=== PATIENT | male | born 1990 | race Caucasian/White ===

== ENCOUNTER 2017-10-11 14:04 | Emergency (ER) | payer SELFPAY ==
[~2017-10-11] VITALS: Ht 172.7 cm; Wt 70.3 kg
[2017-10-11] MEDS ORDERED: SILD50TA PO (14:23)
[2017-10-11] MEDS ORDERED: ABAC1TAB15 PO (14:23)
[2017-10-11] MEDS ORDERED: LORAZEPAM 2 MG/1 ML VIAL IV ONE ×2 (15:00→16:00)
[2017-10-11] MEDS ORDERED: IV NORMAL SALINE 1000 ML BAG IV ONE (15:00)
--- NOTE | 2017-10-11 15:01 | NUR ---
PT IS IN ROOM #2A. DR MONTES EVALUATED THE PT.
[2017-10-11] MEDS ORDERED: LORAZEPAM 2 MG/1 ML VIAL ONE ×2 (15:05→16:01)
[2017-10-11 15:31] LABS: BASOPHILS % (AUTO) 0.3 % (0.0-2.0); EOSINOPHILS # (AUTO) 0.1 K/uL (0.0-0.7); EOSINOPHILS % (AUTO) 1.2 % (0.0-7.0); HEMATOCRIT 44.5 % (36.7-47.1); HEMOGLOBIN 15.2 g/dL (12.5-16.3); LYMPHOCYTES # (AUTO) 2.2 K/uL (20.0-40.0); LYMPHOCYTES % (AUTO) 22.2 % (20.5-51.5); MEAN CORPUSCULAR HEMOGLOBIN 30.4 uug (23.8-33.4); MEAN CORPUSCULAR HGB CONC 34 g/dL (32.5-36.3); MONOCYTES # (AUTO) 0.8 K/uL (2.0-10.0); MONOCYTES % (AUTO) 7.7 % (0.0-11.0); NEUTROPHILS % (AUTO) 68.6 % (38.5-71.5); PLATELET COUNT (AUTO) 298 K/uL (152-348); WHITE BLOOD COUNT (AUTO) 10.1 K/uL (3.6-10.2)
[2017-10-11 15:56] LABS: CREATININE 0.9 mg/dL (0.6-1.3); POTASSIUM 3.8 mmol/L (3.5-5.1)
[2017-10-11 15:57] LABS: BILIRUBIN,DIRECT 0.2 mg/dL (0.0-0.2); BILIRUBIN,TOTAL 1.6 mg/dL (0.2-1.0)
--- NOTE | 2017-10-11 16:45 | NUR ---
DR MONTES MADE PATIENT AWARE OF TEST RESULTS.
--- NOTE | 2017-10-11 16:50 | NUR ---
PATIENT IV WAS REMOVED BY PATIENT NO BLEEDING NOTED.
--- NOTE | 2017-10-11 17:02 | NUR ---
Patient discharged to home in stable conditon. Written and verbal after care instructions given. Patient verbalizes understanding of instructions. V/S refused. NO CP.
== END 2017-10-11 17:02 | disposition home or self-care (01) ==
LOC: ER 14:05
DX: R00.0 Tachycardia, unspecified (principal); Z79.899 Other long term (current) drug therapy
CPT/HCPCS: 36415; 70030-TC; 71045; 84443; 85025; 85730; 93005; A4663; J2060; J7030

== ENCOUNTER 2017-12-30 07:23 | Emergency (ER) | payer SELFPAY ==
[~2017-12-30] VITALS: Ht 172.7 cm; Wt 71.7 kg
[~2017-12-30 07:23] MED LIST: ABAC1TAB15 PO; SILD50TA PO
--- NOTE | 2017-12-30 07:34 | NUR ---
Dr Rivera at the bedside for MSE.
[2017-12-30] MEDS ORDERED: ACCUTANE PO (07:39)
[2017-12-30] MEDS ORDERED: KETOROLAC TROMETHAMINE 30 MG INJ ONE (07:42)
[2017-12-30] MEDS ORDERED: KETOROLAC TROMETHAMINE 30 MG INJ IM ONE (07:45)
--- NOTE | 2017-12-30 07:56 | NUR ---
PER RADIOLOGY DEPT CT SCAN IS DOWN. NOTIFIED DR MAHARAJ. PT WILL BE TRANSFERED TO [facility] FOR CT SCAN. [facility] CALLED FOR BLS TRANSFER AND ETA IS 30 MIN. PT IS RESTING IN BED W/ BOTH EYES CLOSED, NAD NOTED. PT IS AWARE OF TRANSFER.
--- NOTE | 2017-12-30 07:57 | NUR ---
Pt signed consent for transfer. 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
--- NOTE | 2017-12-30 08:15 | NUR ---
Called CT([facility]) to notify of pt's transfer for CT. No answer, left message.
--- NOTE | 2017-12-30 08:23 | NUR ---
Report given to still operator whiskey. Pt left ER in stable condition.
--- NOTE | 2017-12-30 08:36 | NUR ---
Called Ct scan dep at [facility] again to notify them re pt's arrival, phone answering service recieved, and unable to speak to a person.
[2017-12-30] MEDS ORDERED: MORPHINE SULFATE 4 MG/1 ML DISP.SYRIN ONE (09:38)
[2017-12-30] MEDS ORDERED: ONDANSETRON ODT 4 MG TAB.RAPDIS ONE ×2 (09:38→09:41)
--- NOTE | 2017-12-30 09:38 | NUR ---
PT BACK FROM CT. C/O HEADACHE ON LT SIDE OF FORHEAD 02/06. DR MAHARAJ AWARE.ORDERS RECIEVED.
[2017-12-30] MEDS ORDERED: MORPHINE SULFATE 4 MG/1 ML DISP.SYRIN IM ONE (09:45)
[2017-12-30] MEDS ORDERED: ONDANSETRON ODT 4 MG TAB.RAPDIS SL ONE (09:45)
[2017-12-30] MEDS ORDERED: MORPHINE SULFATE 2 MG/1 ML DISP.SYRIN IM ONE (09:45)
--- NOTE | 2017-12-30 10:12 | NUR ---
Patient discharged to home in stable conditon. Written and verbal after care instructions given. Patient verbalizes understanding of instructions. Pt left ER w/ steady gait.
[2017-12-30 10:13] VITALS: BP 109/61
== END 2017-12-30 10:14 | disposition home or self-care (01) ==
LOC: ER 07:26
DX: R51 Headache (principal); Z79.899 Other long term (current) drug therapy
CPT/HCPCS: 70450; A4663; J1885; J2270; Q0162